=== PATIENT | female | born 1955 | race Two or more races ===

== ENCOUNTER 2022-04-03 03:49 | Inpatient (IN) | payer MEDICARE, OTHER ==
[~2022-04-03] VITALS: Ht 152.4 cm; Wt 81.6 kg
[2022-04-03] MEDS ORDERED: ASPIRIN 81 MG TAB.CHEW PO SCH (09:00)
--- NOTE | 2022-04-03 09:40 | NUR ---
DRIVERCOMMERCIAL JOURNEYMAN ELECTRICIAN NOTE Patient arrived via ambulance gurney as direct admit from [facility] presenting as alert and oriented x four and denying any pain at this time. Patient speaks only Brazilian and accompanied by very supportive bilingual speaking daughter. Apical heart rate to auscultation was even, regular at 72 bpm which was confirmed on telemetry also at 72 bpm NSR. Patient has normal, palpable pulses in all 4 warm extremities with good capillary refill. Lung sounds clear to auscultation throughout. Patient has positive bowel sound to all 4 abdominal quadrants, but c/o feeling constipated. Last bowel movement was yesterday. Patient states her normal elimination pattern is once every day. Vital signs are stable with temp= 98.6 F oral. [facility] Identification band securely attached to patient's wrist and confirmed correct spelling and date of . Safety precautions maintained with bed in lowest position and brakes locked with 3 bed siderails up. Will continue to monitor and orient patient to hospital, bed controls, safety procedures, handwashing.
[2022-04-03] MEDS ORDERED: MAGN400T8 PO (10:15)
[2022-04-03] MEDS ORDERED: OMEP20CA15 PO (10:15)
[2022-04-03] MEDS ORDERED: PRAZ5CAP2 PO (10:15)
[2022-04-03] MEDS ORDERED: ASPI-1169 PO (10:15)
[2022-04-03] MEDS ORDERED: LOSA1TAB39 PO (10:15)
[2022-04-03] MEDS ORDERED: AMLO-212 PO (10:15)
[2022-04-03] MEDS ORDERED: ATOR20TA PO (10:15)
[2022-04-03] MEDS ORDERED: GABA-532 PO (10:15)
[2022-04-03] MEDS ORDERED: TEMA30CA PO (10:15)
[2022-04-03] MEDS ORDERED: LORA-259 PO (10:15)
[2022-04-03] MEDS ORDERED: ONDANSETRON HCL/PF 4 MG/2 ML VIAL IV PRN (11:30)
[2022-04-03] MEDS ORDERED: MAGNESIUM HYDROXIDE 30 ML UDC PO PRN (11:30)
[2022-04-03] MEDS ORDERED: LORAZEPAM 0.5 MG TABLET PO PRN (11:30)
[2022-04-03] MEDS ORDERED: ACETAMINOPHEN 325 MG TABLET PO PRN (11:30)
[2022-04-03] MEDS ORDERED: DOCUSATE SODIUM 100 MG CAPSULE PO PRN (11:30)
[2022-04-03 11:57] LABS: BASOPHILS % (AUTO) 0.3 % (0.0-2.0); EOSINOPHILS % (AUTO) 0.8 % (0.0-6.0); HEMATOCRIT 36 % (33-45); HEMOGLOBIN 11.9 g/dL (11.5-14.8); LYMPHOCYTES # (AUTO) 1.7 K/uL (0.8-4.8); LYMPHOCYTES % (AUTO) 27.8 % (20.0-44.0); MEAN CORPUSCULAR HGB CONC 33 g/dl (31.0-36.0); MEAN CORPUSCULAR VOLUME 91 fL (82-100); MONOCYTES # (AUTO) 0.4 K/uL (0.1-1.30); MONOCYTES % (AUTO) 6.4 % (2.0-12.0); NEUTROPHILS % (AUTO) 64.7 % (43.0-81.0); PLATELET COUNT (AUTO) 132 K/uL (150-450); RED BLOOD CELL COUNT(AUTO) 3.96 MIL/uL (4.0-5.2); WHITE BLOOD COUNT (AUTO) 6.1 K/uL (4.3-11.0)
[2022-04-03 12:00] VITALS: BP 134/51
[2022-04-03 12:03] VITALS: BP 138/86
[2022-04-03 12:22] LABS: CALCIUM, SERUM 8.1 mg/dL (8.5-10.1); CREATININE 0.9 mg/dL (0.6-1.3); MAGNESIUM 2.2 mg/dL (1.8-2.4); PHOSPHORUS 3.1 mg/dL (2.5-4.9); POTASSIUM 3.6 mmol/L (3.5-5.1)
[2022-04-03] MEDS ORDERED: ENOXAPARIN SODIUM 80 MG/0.8 ML DISP.SYRIN SQ STA (13:30)
[2022-04-03] MEDS: ASPIRIN EC 325 MG TABLET.DR PO SCH (13:36)
[2022-04-03] MEDS: GABAPENTIN 300 MG CAPSULE PO SCH (13:36)
[2022-04-03] MEDS: LOSARTAN/HCTZ 50-12.5MG/ 1 EA TABLET PO SCH (13:38)
[2022-04-03] MEDS: IV NS 0.9% 1,000 ML IV SCH (13:39)
[2022-04-03] MEDS: MAGNESIUM OXIDE 400 MG TABLET PO SCH ×2 (13:40→17:23)
[2022-04-03] MEDS ORDERED: PRAZOSIN HCL 1 MG CAPSULE PO SCH (14:00)
[2022-04-03] MEDS: CEFTRIAXONE 1 G in IV D5W 50 ML IV SCH (15:15)
[2022-04-03 15:28] LABS: BILIRUBIN,URINE NEGATIVE (NEGATIVE); COLOR,URINE YELLOW (YELLOW); LEUKOCYTE ESTERASE ,URINE NEGATIVE (NEGATIVE); NITRITE, URINE NEGATIVE (NEGATIVE); PROTEIN,URINE NEGATIVE (NEGATIVE); UGLUCOSE NEGATIVE (NEGATIVE); UROBILINOGEN,URINE 0.2 EU/dL (0.2)
[2022-04-03 16:00] VITALS: BP 143/62
[2022-04-03] MEDS ORDERED: TEMAZEPAM 15 MG CAPSULE PO PRN (16:00)
[2022-04-03] MEDS: PRAZOSIN HCL 1 MG CAPSULE PO SCH ×2 (16:00→21:06)
[2022-04-03] MEDS ORDERED: LORAZEPAM 1 MG TABLET PO PRN (16:00)
[2022-04-03] MEDS ORDERED: hydrALAZINE HCL IV 20 MG VIAL IV PRN ×2 (17:00)
[2022-04-03] MEDS ORDERED: ENALAPRILAT DIHYD. (2.5MG/2ML) 1.25 MG/ML VIAL IV PRN (17:00)
[2022-04-03] MEDS: AMLODIPINE BESYLATE 5 MG TABLET PO SCH (17:23)
--- NOTE | 2022-04-03 18:58 | NUR ---
SUPERVISOR COMMISSARY PRODUCTION CLOSING NOTE Patient resting comfortably in bed with family visiting, alert and oriented x 4 and denies having pain at this time. Tele monitor showing HR in 60s to 80s. Breathing comfortably on room air with O2 saturation at 95%. Oriented and educated patient and family to safety protocals, visiting hours, privacy protocals, hand washing and patient's plan of care. Maintained safety with bed in lowest position, brakes locked, 2 bed siderails up, and call light within patient's reach. Will endorse to night RN for AKIN.
[2022-04-03] MEDS: METOPROLOL TARTRATE 25 MG TABLET PO SCH ×2 (18:59→21:00)
[2022-04-03 20:00] VITALS: BP 135/70
--- NOTE | 2022-04-03 20:21 | NUR ---
RN NOTE SPOKE TO PHARMACIST URVASHI CAMPUZANO TO GIVE LOVENOX 2100.
--- NOTE | 2022-04-03 20:22 | NUR ---
RN NOTE PT RECEIVED IN BED A/O X4 TURKISH SPEAKING BUT ABLE TO COMMUNICATE NEEDS IN [place] WELL. WITH FAMILY MEMBERS AT BEDSIDE PT DOES NOT REPORT ANY CHEST PAIN AT THIS TIME. NOTED WITH IC ACCESS ON RAC ML RUNNING NS @40ML/HR. BED IN LOWEST LOCKED POSITION. TABLE WITIN REACH. HOB ELEVATED FOR ASPIRATION PRECAUTIONS. CALL LIGHT WITHIN REACH.
--- NOTE | 2022-04-03 21:01 | NUR ---
RN NOTE DOSE TO CLOSE TO LAST DOSE IT WAS GIVEN 1900. PER PHARMACIST OKAY TO HOLD THIS DOSE AT THIS TIME.
[2022-04-03] MEDS: ATORVASTATIN 40 MG TABLET PO SCH (21:06)
[2022-04-03] MEDS: ENOXAPARIN SODIUM 80 MG/0.8 ML DISP.SYRIN SQ SCH (21:17)
[2022-04-03] MEDS: TEMAZEPAM 15 MG CAPSULE PO PRN (21:43)
[2022-04-03] MEDS ORDERED: ATORVASTATIN 40 MG TABLET PO SCH (22:00)
[2022-04-04] VITALS: BP 100/64
[2022-04-04 04:00] VITALS: BP 102/56
[2022-04-04 06:10] LABS: BASOPHILS % (AUTO) 0.3 % (0.0-2.0); HEMATOCRIT 37 % (33-45); LYMPHOCYTES % (AUTO) 36.9 % (20.0-44.0); MEAN CORPUSCULAR HGB CONC 33 g/dl (31.0-36.0); MEAN CORPUSCULAR VOLUME 92 fL (82-100); MONOCYTES # (AUTO) 0.4 K/uL (0.1-1.30); MONOCYTES % (AUTO) 7.8 % (2.0-12.0); NEUTROPHILS # (AUTO) 2.9 K/uL (1.8-8.9); PLATELET COUNT (AUTO) 137 K/uL (150-450); RED BLOOD CELL COUNT(AUTO) 3.96 MIL/uL (4.0-5.2); WHITE BLOOD COUNT (AUTO) 5.5 K/uL (4.3-11.0)
[2022-04-04 06:27] LABS: CALCIUM, SERUM 8.4 mg/dL (8.5-10.1); MAGNESIUM 2.6 mg/dL (1.8-2.4); PHOSPHORUS 3.4 mg/dL (2.5-4.9); POTASSIUM 3.5 mmol/L (3.5-5.1)
--- NOTE | 2022-04-04 06:35 | NUR ---
RN NOTE PT RECEIVED IN BED A/O X4 SYRIAN ASLEEP AT THIS TIME EASILY WOKEN UP. PT DOES NOT REPORT ANY CHEST PAIN AT THIS TIME. NOTED WITH IC ACCESS ON RAC ML RUNNING NS @40ML/HR. ON TELE MONITOR NSR 65- 93 DURING SHIFT.BED IN LOWEST LOCKED POSITION. TABLE WITHIN REACH. HOB ELEVATED FOR ASPIRATION PRECAUTIONS. CALL LIGHT WITHIN REACH.
[2022-04-04 06:44] LABS: THYROID STIMULATING HORMONE 1.009 uIU/mL (0.358-3.74)
[2022-04-04 07:00] VITALS: BP 110/60
--- NOTE | 2022-04-04 07:30 | NUR ---
AUTOMOBILE LEASING SUPERVISOR OPENING NOTES RECEIVED PATIENT ON BED AWAKE AND A/O X4. ON ROOM AIR TOLERATING WELL. NO SOB NOTED. NOT IN DISTRESS. WITH NO COMPLAINTS OF PAIN OR DISCOMFORT AT THIS TIME. WITH IV ACCESS AT THE RIGHT AC G18 WITH IVF NS AT 40ML/HR INFUSING WELL. ON TELE MONITOR CURRENTLY READING SINUS RHYTHM AT 80BPM. SAFETY MEASURES IN PLACED. CALL LIGHT WITHIN REACH. BED ON LOWEST LOCKED POSITION, SIDE RAILS UP X2. WILL CONTINUE TO MONITOR.
[2022-04-04] MEDS: PANTOPRAZOLE 40 MG TABLET.DR PO SCH (08:44)
[2022-04-04] MEDS: MAGNESIUM OXIDE 400 MG TABLET PO SCH ×3 (08:44→16:13)
[2022-04-04] MEDS: GABAPENTIN 300 MG CAPSULE PO SCH (08:44)
[2022-04-04] MEDS: AMLODIPINE BESYLATE 5 MG TABLET PO SCH ×2 (08:44→16:13)
[2022-04-04] MEDS: LOSARTAN POTASSIUM 50 MG TABLET PO SCH (08:44)
[2022-04-04] MEDS: ASPIRIN EC 325 MG TABLET.DR PO SCH (08:44)
[2022-04-04] MEDS: HYDROCHLOROTHIAZIDE 25 MG TABLET PO SCH (08:45)
[2022-04-04] MEDS: PRAZOSIN HCL 1 MG CAPSULE PO SCH ×2 (08:45→21:25)
[2022-04-04] MEDS: ENOXAPARIN SODIUM 80 MG/0.8 ML DISP.SYRIN SQ SCH ×2 (08:48→21:23)
[2022-04-04] MEDS: METOPROLOL TARTRATE 25 MG TABLET PO SCH ×2 (08:49→21:24)
[2022-04-04] MEDS: LOSARTAN/HCTZ 50-12.5MG/ 1 EA TABLET PO SCH (08:49)
[2022-04-04] MEDS: GABAPENTIN 100 MG CAPSULE PO SCH (08:49)
[2022-04-04] MEDS: ATORVASTATIN 40 MG TABLET PO SCH ×2 (08:50→21:21)
[2022-04-04 08:52] LABS: CHOLESTEROL 120 mg/dL (<200); HDL CHOLESTEROL 61 mg/dL (40-60); LDL 53 mg/dL (0-99); TRIGLYCERIDES 83 mg/dL (30-150)
[2022-04-04 12:00] VITALS: BP 101/64
[2022-04-04] MEDS: IV NS 0.9% 1,000 ML IV SCH (13:55)
[2022-04-04] MEDS ORDERED: POTASSIUM CHLORIDE 20 MEQ TAB.PRT.SR PO SCH (14:00)
[2022-04-04] MEDS: CEFTRIAXONE 1 G in IV D5W 50 ML IV SCH (14:18)
[2022-04-04] MEDS: METOPROLOL TARTRATE INJ 5 MG/5 ML AMPUL IVP PRN ×4 (14:50→15:05)
[2022-04-04] MEDS ORDERED: IV NS 0.9% 250 ML IV ONE (14:54)
[2022-04-04] MEDS ORDERED: CT SWABBABLE VALVE TRANS SET 1 EA INFUS.SET MC ONE (14:54)
[2022-04-04] MEDS ORDERED: NITROGLYCERIN 0.4 MG/TAB BOTTLE ONE (14:54)
[2022-04-04] MEDS ORDERED: METOPROLOL TARTRATE INJ 5 MG/5 ML AMPUL ONE (14:54)
[2022-04-04] MEDS ORDERED: IOHEXOL-350 100 ML VIAL IV ONE ×2 (14:55→14:59)
[2022-04-04] MEDS ORDERED: NITROGLYCERIN 0.4 MG/TAB BOTTLE SL ONE (15:00)
--- NOTE | 2022-04-04 18:45 | NUR ---
TRANSPORTATION ENGINEERING TECHNICIAN CLOSING NOTES PATIENT ON BED AWAKE AND A/O X4. ON ROOM AIR TOLERATING WELL. NO SOB NOTED. NOT IN DISTRESS. WITH NO COMPLAINTS OF PAIN OR DISCOMFORT AT THIS TIME. WITH IV ACCESS AT RIGHT FOREARM G22 SALINE LOCKED, PATENT AND INTACT AND AT THE LEFT FOREARM G20 WITH IVF NS AT 40ML/HR INFUSING WELL. ON TELE MONITOR CURRENTLY READING SINUS RHYTHM AT 85BPM. DUE MEDS GIVEN. SAFETY MEASURES IN PLACED. CALL LIGHT WITHIN REACH. BED ON LOWEST LOCKED POSITION, SIDE RAILS UP X2. WILL ENDORSE TO NEXT SHIFT FOR AKIN.
--- NOTE | 2022-04-04 19:15 | NUR ---
SCENE PAINTER OPENING NOTES RECEIVED PATIENT ON BED AWAKE. A/O X4, ABLE TO MAKE NEEDS KNOWN, FAMILY AT BEDSIDE. ON RA WITH NO SOB NOTED. NO DISTRESS NOTED AND NO COMPLAINTS OF PAIN OR DISCOMFORT AT THIS TIME. IV ACCESS RFA #22G SL AND LFA #20G RUNNING NS @ 40MLHR, PATENT AND INTACT. ON TELE MONITOR CURRENTLY READING SR AT 65 BPM. SAFETY MEASURES IN PLACE: BED LOCKED AND IN LOWEST POSITION, SIDE RAILS UP X3, CALL LIGHT AND TRAY TABLE WITHIN REACH. WILL CONTINUE TO MONITOR AND ASSIST.
[2022-04-04 20:16] VITALS: BP 120/63
[2022-04-04] MEDS: TEMAZEPAM 15 MG CAPSULE PO PRN (21:25)
[2022-04-05 00:18] VITALS: BP 106/51
[2022-04-05 04:02] VITALS: BP 111/51
--- NOTE | 2022-04-05 07:00 | NUR ---
SAMPLE COORDINATOR CLOSING NOTES PATIENT RESTING IN BED AT THIS TIME. A/O X4, ABLE TO MAKE NEEDS KNOWN. STABLE ON RA WITH NO SOB NOTED. NO DISTRESS NOTED AND NO COMPLAINTS OF PAIN OR DISCOMFORT AT THIS TIME. IV ACCESS RFA #22G SL AND LFA #20G RUNNING NS @ 40MLHR, PATENT AND INTACT. ON TELE MONITOR CURRENTLY READING SR AT 70 BPM. ALL CARE PROVIDED AND MEDS TOLERATED WELL. SAFETY MEASURES MAINTAINED: BED LOCKED AND IN LOWEST POSITION, SIDE RAILS UP X3, CALL LIGHT AND TRAY TABLE WITHIN REACH. WILL ENDORSE AKIN TO DAY SHIFT NURSE.
--- NOTE | 2022-04-05 07:30 | NUR ---
SAND CLEANING MACHINE OPERATOR OPENING NOTES RECEIVED PATIENT ON BED AWAKE AND A/O X4. ON ROOM AIR TOLERATING WELL. NO SOB NOTED. NOT IN DISTRESS. WITH NO COMPLAINTS OF PAIN OR DISCOMFORT AT THIS TIME. WITH IV ACCESS AT RIGHT FOREARM G22 SALINE LOCKED, PATENT AND INTACT AND AT THE LEFT FOREARM G20 WITH IVF NS AT 40ML/HR INFUSING WELL. ON TELE MONITOR CURRENTLY READING SINUS RHYTHM AT 78BPM. SAFETY MEASURES IN PLACED. CALL LIGHT WITHIN REACH. BED ON LOWEST LOCKED POSITION, SIDE RAILS UP X2. WILL CONTINUE TO MONITOR.
[2022-04-05 08:00] VITALS: BP 140/71
[2022-04-05] MEDS: ATORVASTATIN 40 MG TABLET PO SCH (08:01)
[2022-04-05] MEDS: AMLODIPINE BESYLATE 5 MG TABLET PO SCH ×2 (08:02→17:17)
[2022-04-05] MEDS: GABAPENTIN 300 MG CAPSULE PO SCH (08:02)
[2022-04-05] MEDS: LOSARTAN POTASSIUM 50 MG TABLET PO SCH (08:02)
[2022-04-05] MEDS: METOPROLOL TARTRATE 25 MG TABLET PO SCH ×2 (08:02→21:22)
[2022-04-05] MEDS: HYDROCHLOROTHIAZIDE 25 MG TABLET PO SCH (08:02)
[2022-04-05] MEDS: PANTOPRAZOLE 40 MG TABLET.DR PO SCH (08:03)
[2022-04-05] MEDS: MAGNESIUM OXIDE 400 MG TABLET PO SCH ×3 (08:42→16:11)
[2022-04-05] MEDS: GABAPENTIN 100 MG CAPSULE PO SCH (08:42)
[2022-04-05] MEDS: VALSARTAN 80 MG TABLET PO SCH (08:42)
[2022-04-05] MEDS: PRAZOSIN HCL 1 MG CAPSULE PO SCH ×2 (08:42→21:23)
[2022-04-05] MEDS: ASPIRIN EC 325 MG TABLET.DR PO SCH (08:43)
[2022-04-05 12:00] VITALS: BP 106/62
[2022-04-05] MEDS: CEFTRIAXONE 1 G in IV D5W 50 ML IV SCH (14:31)
[2022-04-05 16:00] VITALS: BP 120/74
[2022-04-05 16:54] LABS: BASOPHILS # (AUTO) 0.1 K/uL (0.0-0.2); BASOPHILS % (AUTO) 0.9 % (0.0-2.0); HEMATOCRIT 38 % (33-45); HEMOGLOBIN 12.4 g/dL (11.5-14.8); LYMPHOCYTES # (AUTO) 1.7 K/uL (0.8-4.8); LYMPHOCYTES % (AUTO) 25.9 % (20.0-44.0); MEAN CORPUSCULAR HGB CONC 32 g/dl (31.0-36.0); MEAN CORPUSCULAR VOLUME 92 fL (82-100); MONOCYTES # (AUTO) 0.5 K/uL (0.1-1.30); NEUTROPHILS # (AUTO) 4.3 K/uL (1.8-8.9); NEUTROPHILS % (AUTO) 64.2 % (43.0-81.0); PLATELET COUNT (AUTO) 162 K/uL (150-450); RED BLOOD CELL COUNT(AUTO) 4.17 MIL/uL (4.0-5.2); WHITE BLOOD COUNT (AUTO) 6.7 K/uL (4.3-11.0)
[2022-04-05 17:12] LABS: CALCIUM, SERUM 8.5 mg/dL (8.5-10.1); MAGNESIUM 2.2 mg/dL (1.8-2.4); PHOSPHORUS 3.4 mg/dL (2.5-4.9); POTASSIUM 3.8 mmol/L (3.5-5.1)
--- NOTE | 2022-04-05 19:20 | NUR ---
BUILDING CLEANING SUPERVISOR CLOSING NOTES PATIENT ON BED AWAKE AND A/O X4. ON ROOM AIR TOLERATING WELL. NO SOB NOTED. NOT IN DISTRESS. WITH NO COMPLAINTS OF PAIN OR DISCOMFORT AT THIS TIME. WITH IV ACCESS AT RIGHT FOREARM G22 SALINE LOCKED, PATENT AND INTACT AND AT THE LEFT FOREARM G20 SALINE LOCKED, PATENT AND INTACT. ON TELE MONITOR CURRENTLY READING SINUS RHYTHM AT 82BPM. DUE MEDS GIVEN. SAFETY MEASURES IN PLACED. CALL LIGHT WITHIN REACH. BED ON LOWEST LOCKED POSITION, SIDE RAILS UP X2. WILL ENDORSE TO NEXT SHIFT FOR AKIN.
--- NOTE | 2022-04-05 19:51 | NUR ---
RN OPENING NOTES RECEIVED PT IN BED, AWAKE SITTING UPRIGHT IN CHAIR WITH SON AT BEDSIDE. AOx4, ABLE TO MAKE NEEDS KNOWN. ON RA AND TOLERATING WELL. NO SOB NOTED. NO S/SX OF RESPIRATORY DISTRESS NOTED. IV ACCESS IN LFA #20G AND RFA #22G. IV IS INTACT, PATENT, AND FLUSHING WELL. SAFETY PRECAUTIONS IN PLACE: BED IN LOWEST, LOCKED POSITION, SIDERAILS UPx2, AND BRAKES ON. TABLE AND CALL LIGHT WITHIN REACH. ALL NEEDS MET AT THIS TIME.
[2022-04-05 20:00] VITALS: BP 130/66
[2022-04-05] MEDS: ENOXAPARIN SODIUM 80 MG/0.8 ML DISP.SYRIN SQ SCH (21:24)
[2022-04-05] MEDS: TEMAZEPAM 15 MG CAPSULE PO PRN (22:07)
--- NOTE | 2022-04-05 22:07 | NUR ---
RN NOTES ADMINISTERED TEMAZEPAM FOR SLEEP PER PT REQUEST.
[2022-04-06] VITALS: BP 94/63
--- NOTE | 2022-04-06 06:36 | NUR ---
RN CLOSING NOTES PT IN BED, AWAKE, SITTING UPRIGHT, USING PHONE. AOx4, ABLE TO MAKE NEEDS KNOWN. ON RA AND TOLERATING WELL. NO SOB NOTED. NO S/SX OF RESPIRATORY DISTRESS NOTED. IV ACCESS IN LFA #20G AND RFA #22G. IV IS INTACT, PATENT, AND FLUSHING WELL. ALL ORDERS CARRIED OUT. ALL NEEDS MET. PT KEPT CLEAN AND DRY. SAFETY PRECAUTIONS IN PLACE: BED IN LOWEST, LOCKED POSITION, SIDERAILS UPx2, AND BRAKES ON. TABLE AND CALL LIGHT WITHIN REACH. WILL ENDORSE TO ONCOMING SHIFT FOR AKIN.
[2022-04-06 06:43] LABS: BASOPHILS % (AUTO) 0.3 % (0.0-2.0); EOSINOPHILS % (AUTO) 2.8 % (0.0-6.0); HEMATOCRIT 34 % (33-45); HEMOGLOBIN 11.5 g/dL (11.5-14.8); LYMPHOCYTES # (AUTO) 1.8 K/uL (0.8-4.8); LYMPHOCYTES % (AUTO) 33.3 % (20.0-44.0); MEAN CORPUSCULAR HGB CONC 33 g/dl (31.0-36.0); MEAN CORPUSCULAR VOLUME 91 fL (82-100); MONOCYTES # (AUTO) 0.4 K/uL (0.1-1.30); MONOCYTES % (AUTO) 8.1 % (2.0-12.0); NEUTROPHILS % (AUTO) 55.5 % (43.0-81.0); PLATELET COUNT (AUTO) 137 K/uL (150-450); RED BLOOD CELL COUNT(AUTO) 3.77 MIL/uL (4.0-5.2); WHITE BLOOD COUNT (AUTO) 5.4 K/uL (4.3-11.0)
[2022-04-06 07:04] LABS: CALCIUM, SERUM 8.4 mg/dL (8.5-10.1); CREATININE 0.9 mg/dL (0.6-1.3); MAGNESIUM 2.2 mg/dL (1.8-2.4); PHOSPHORUS 4.2 mg/dL (2.5-4.9); POTASSIUM 3.5 mmol/L (3.5-5.1)
--- NOTE | 2022-04-06 07:30 | NUR ---
RN Opening Note Patient AOx4 able to express her concerns. Patient states no issues. No signs of distress or discomfort. Will continue to monitor throughout shift. All safety precautions taken, call light and table within reach, bed at lowest position.
[2022-04-06 08:00] VITALS: BP 100/60
[2022-04-06] MEDS: MAGNESIUM OXIDE 400 MG TABLET PO SCH ×2 (08:24→08:28)
[2022-04-06] MEDS: GABAPENTIN 300 MG CAPSULE PO SCH (08:24)
[2022-04-06] MEDS: ENOXAPARIN SODIUM 80 MG/0.8 ML DISP.SYRIN SQ SCH (08:24)
[2022-04-06] MEDS: ATORVASTATIN 40 MG TABLET PO SCH (08:24)
[2022-04-06] MEDS: PANTOPRAZOLE 40 MG TABLET.DR PO SCH (08:25)
[2022-04-06] MEDS: ASPIRIN EC 325 MG TABLET.DR PO SCH (08:25)
[2022-04-06] MEDS: VALSARTAN 80 MG TABLET PO SCH (08:26)
[2022-04-06] MEDS: LOSARTAN POTASSIUM 50 MG TABLET PO SCH (08:26)
[2022-04-06] MEDS: METOPROLOL TARTRATE 25 MG TABLET PO SCH (08:27)
[2022-04-06] MEDS: AMLODIPINE BESYLATE 5 MG TABLET PO SCH (08:28)
[2022-04-06] MEDS: GABAPENTIN 100 MG CAPSULE PO SCH (08:28)
[2022-04-06] MEDS: PRAZOSIN HCL 1 MG CAPSULE PO SCH (08:28)
[2022-04-06 11:56] VITALS: BP 98/60
[2022-04-06] MEDS: CEFTRIAXONE 1 G in IV D5W 50 ML IV SCH (15:13)
[2022-04-06 16:00] VITALS: BP 105/72
[2022-04-06] MEDS ORDERED: ATOR40TA PO (17:22)
[2022-04-06] MEDS ORDERED: TEMA15CA5 PO (17:22)
[2022-04-06] MEDS ORDERED: METO25TA20 PO (17:22)
[2022-04-06] MEDS ORDERED: LOSA50TA39 PO (17:22)
[2022-04-06] MEDS ORDERED: PRAZ1CAP17 PO (17:22)
[2022-04-06] MEDS ORDERED: ASPI-1100 PO (17:22)
[2022-04-06] MEDS ORDERED: VALS80TA31 PO (17:22)
[2022-04-06] MEDS ORDERED: ACET325T53 PO (17:22)
--- NOTE | 2022-04-06 18:04 | NUR ---
decorating kiln operator Note Patient AOx4 able to express her concerns. Patient son and daughter at bedside. Educated pt and fam. on importance of following up with PCP and cardiology. Provided records and phone numbers for providers. Patient made aware of medications sent to her pharmacy. All safety precautions taken, patient discharge out of unit safely.
== END 2022-04-06 18:05 | disposition home or self-care (01) | DRG 280 ==
LOC: TELE 08:51
PROVIDERS: ADMIT Internal Medicine; ATTEND Internal Medicine
DX: I21.4 Non-ST elevation (NSTEMI) myocardial infarction (principal); J18.9 Pneumonia, unspecified organism; I16.0 Hypertensive urgency; I25.10 Atherosclerotic heart disease of native coronary artery without angina pectoris; I10 Essential (primary) hypertension; F41.9 Anxiety disorder, unspecified; K21.9 Gastro-esophageal reflux disease without esophagitis; E78.00 Pure hypercholesterolemia, unspecified; G47.9 Sleep disorder, unspecified; Z79.899 Other long term (current) drug therapy; Z98.51 Tubal ligation status; D50.9 Iron deficiency anemia, unspecified; Z82.49 Family history of ischemic heart disease and other diseases of the circulatory system; E66.9 Obesity, unspecified; G47.33 Obstructive sleep apnea (adult) (pediatric); Z68.35 Body mass index [BMI] 35.0-35.9, adult; Z79.82 Long term (current) use of aspirin
CPT/HCPCS: 36415; 75574; 80048-TC; 80061-TC; 83540-TC; 83605-TC; 83735-TC; 84100-TC; 84443-TC; 84484-TC; 85025-TC; 87040-TC; 87086-TC; 93307-TC; G0378; J0696; J1650; J3490; J7030; J7050; J7060; Q9967

== ENCOUNTER 2023-12-16 15:43 | Inpatient (IN) | payer MEDICARE, OTHER ==
[~2023-12-16] VITALS: Ht 152.4 cm; Wt 76.2 kg
[~2023-12-16 15:43] MED LIST: ACET325T53 PO; AMLO-212 PO; ASPI-1100 PO; ASPI-1169 PO; ATOR20TA PO; ATOR40TA PO; GABA-532 PO; LORA-259 PO; LOSA1TAB39 PO; LOSA50TA39 PO; MAGN400T8 PO; METO25TA20 PO; OMEP20CA15 PO; PRAZ1CAP17 PO; PRAZ5CAP2 PO; TEMA15CA5 PO; TEMA30CA PO; VALS80TA31 PO
[2023-12-16 16:25] LABS: BASOPHILS % (AUTO) 0.2 % (0.0-2.0); HEMATOCRIT 41 % (33-45); HEMOGLOBIN 13.9 g/dL (11.5-14.8); LYMPHOCYTES # (AUTO) 0.6 K/uL (0.8-4.8); LYMPHOCYTES % (AUTO) 8.2 % (20.0-44.0); MEAN CORPUSCULAR HEMOGLOBIN 30 PG (26.0-33.0); MEAN CORPUSCULAR HGB CONC 34 g/dl (31.0-36.0); MEAN CORPUSCULAR VOLUME 88 fL (82-100); MONOCYTES # (AUTO) 0.1 K/uL (0.1-1.30); MONOCYTES % (AUTO) 0.7 % (2.0-12.0); NEUTROPHILS # (AUTO) 6.6 K/uL (1.8-8.9); NEUTROPHILS % (AUTO) 90.9 % (43.0-81.0); PLATELET COUNT (AUTO) 167 K/uL (150-450); RED BLOOD CELL COUNT(AUTO) 4.71 MIL/uL (4.0-5.2); RED CELL DISTRIBUTION WIDTH 13.6 % (11.5-15.0); WHITE BLOOD COUNT (AUTO) 7.3 K/uL (4.3-11.0)
[2023-12-16 16:37] LABS: CALCIUM, SERUM 8.9 mg/dL (8.5-10.1); CARBON DIOXIDE 26 mmol/L (21-32); CHLORIDE 91 mmol/L (98-107); GLUCOSE 182 mg/dL (74-106); POTASSIUM 3.7 mmol/L (3.5-5.1); SODIUM SERUM 128 mmol/L (136-145); UREA NITROGEN, BLOOD 13 mg/dL (7-18)
[2023-12-16 16:50] LABS: ALANINE AMINOTRANSFERASE 22 U/L (12-78); ALBUMIN 3.9 g/dL (3.4-5.0); ALKALINE PHOSPHATASE 89 U/L (46-116); ASPARTATE AMINOTRANSFERASE 22 U/L (15-37); BILIRUBIN,DIRECT 0.2 mg/dL (0.0-0.2); BILIRUBIN,TOTAL 0.7 mg/dL (0.2-1.0); NT-PRO BNP 129 pg/mL (0-125); TOTAL PROTEIN, SERUM 7.5 g/dL (6.4-8.2)
[2023-12-16 16:57] LABS: THYROID STIMULATING HORMONE 0.39 uIU/mL (0.358-3.74)
[2023-12-16] MEDS: IV NS 0.9% 1,000 ML BAG IV ONE (17:20)
[2023-12-16] MEDS ORDERED: ALPR0.5T8 PO (17:57)
[2023-12-16] MEDS ORDERED: METO-358 PO (17:57)
[2023-12-16] MEDS ORDERED: CLOP75TA15 PO (17:57)
[2023-12-16] MEDS ORDERED: VALS160T2 PO (17:57)
[2023-12-16] MEDS ORDERED: ATOR40TA PO (17:57)
[2023-12-16] MEDS ORDERED: HYDR50TA4 PO (17:57)
[2023-12-16] MEDS ORDERED: CYAN-24 PO (17:57)
[2023-12-16] MEDS ORDERED: KETO10TA2 PO (17:57)
[2023-12-16 18:00] VITALS: BP 166/69; TEMP 98.4; O2SAT 98
[2023-12-16] MEDS: IV NS 0.9% 500 ML BAG IV ONE (18:27)
[2023-12-16] MEDS ORDERED: INSULIN REGULAR, HUMAN 100 UNIT/ML 3 ML VIAL SQ PRN (18:30)
[2023-12-16] MEDS ORDERED: ONDANSETRON HCL/PF 4 MG/2 ML VIAL IVP PRN (18:30)
[2023-12-16] MEDS ORDERED: KETOROLAC TROMETHAMINE 10 MG TABLET PO PRN (18:30)
[2023-12-16] MEDS ORDERED: MORPHINE SULFATE INJ 2 MG/ML DISP.SYRIN IV PRN (18:30)
[2023-12-16] MEDS ORDERED: DEXTROSE 50%-WATER 50 ML DISP.SYRIN IV PRN (18:30)
[2023-12-16 18:32] VITALS: BP 166/69; TEMP 98.4; O2SAT 98
[2023-12-16 19:36] LABS: URINE SODIUM, RANDOM 42 mmol/l (40-220)
[2023-12-16] MEDS: ALPRAZOLAM 0.5 MG TABLET PO PRN (19:48)
[2023-12-16] MEDS: ACETAMINOPHEN 325 MG TABLET PO PRN (19:48)
[2023-12-16] MEDS: IV NS 0.9% 1,000 ML IV SCH (19:48)
[2023-12-16 20:00] VITALS: BP 160/64; TEMP 97.5; O2SAT 96
[2023-12-16] MEDS: ATORVASTATIN 40 MG TABLET PO SCH (21:48)
[2023-12-16] MEDS: HEPARIN SODIUM, PORCINE 5000 UNITS/1 ML VIAL SQ SCH (21:51)
[2023-12-16] MEDS: BLOOD SUGAR DIAGNOSTIC 1 EACH STRIP IN SCH (21:58)
[2023-12-17] VITALS (7 sets, daily range): BP systolic 118–170; BP diastolic 61–73; TEMP 97.8–98.1; O2SAT 94–100
[2023-12-17] MEDS: hydrALAZINE HCL IV 20 MG VIAL IV PRN (06:05)
[2023-12-17 08:35] LABS: ALBUMIN 3.9 g/dL (3.4-5.0); BILIRUBIN,TOTAL 0.6 mg/dL (0.2-1.0); CALCIUM, SERUM 9.2 mg/dL (8.5-10.1); CREATININE 0.7 mg/dL (0.6-1.3); MAGNESIUM 2.3 mg/dL (1.8-2.4); PHOSPHORUS 2.9 mg/dL (2.5-4.9); POTASSIUM 3.2 mmol/L (3.5-5.1); TOTAL PROTEIN, SERUM 7.5 g/dL (6.4-8.2)
[2023-12-17] MEDS: PRAZOSIN HCL 1 MG CAPSULE PO SCH (08:48)
[2023-12-17] MEDS: METOPROLOL SUCCINATE 50 MG TAB.SR.24H PO SCH (08:48)
[2023-12-17] MEDS: VALSARTAN 80 MG TABLET PO SCH (08:49)
[2023-12-17] MEDS: DOCUSATE SODIUM LIQ 100 MG/10 ML UDC PO SCH (08:49)
[2023-12-17] MEDS: CLOPIDOGREL BISULFATE 75 MG TABLET PO SCH (08:52)
[2023-12-17] MEDS: POLYETHYLENE GLYCOL 3350 17 GM POWD.PACK PO SCH (08:52)
[2023-12-17 09:59] LABS: BASOPHILS # (AUTO) 0.1 K/uL (0.0-0.2); BASOPHILS % (AUTO) 0.7 % (0.0-2.0); EOSINOPHILS % (AUTO) 0.1 % (0.0-6.0); HEMATOCRIT 42 % (33-45); HEMOGLOBIN 13.9 g/dL (11.5-14.8); LYMPHOCYTES # (AUTO) 1.7 K/uL (0.8-4.8); LYMPHOCYTES % (AUTO) 19.2 % (20.0-44.0); MEAN CORPUSCULAR HEMOGLOBIN 29 PG (26.0-33.0); MEAN CORPUSCULAR HGB CONC 33 g/dl (31.0-36.0); MEAN CORPUSCULAR VOLUME 86 fL (82-100); MONOCYTES % (AUTO) 10.6 % (2.0-12.0); NEUTROPHILS # (AUTO) 6.3 K/uL (1.8-8.9); NEUTROPHILS % (AUTO) 69.4 % (43.0-81.0); PLATELET COUNT (AUTO) 136 K/uL (150-450); RED BLOOD CELL COUNT(AUTO) 4.84 MIL/uL (4.0-5.2); RED CELL DISTRIBUTION WIDTH 13.9 % (11.5-15.0)
[2023-12-17] MEDS: POTASSIUM CHLORIDE 20 MEQ TAB.PRT.SR PO SCH (10:52)
[2023-12-17] MEDS: POTASSIUM CHLORIDE 20 MEQ POWDER PACKET PO SCH (11:42)
[2023-12-17] MEDS: DOCUSATE SODIUM 100 MG CAPSULE PO SCH (16:45)
[2023-12-17 17:41] LABS: OSMOLALITY,SERUM 271 mOS/kg (278-305); OSMOLALITY,URINE 212 mOS/kg (340-1090)
[2023-12-17] MEDS: DOXAZOSIN MESYLATE (1 MG) 1 MG TABLET PO SCH (22:14)
[2023-12-18] VITALS (7 sets, daily range): BP systolic 111–174; BP diastolic 57–89; TEMP 97.3–98.4; O2SAT 96–99
[2023-12-18 06:59] LABS: CALCIUM, SERUM 8.8 mg/dL (8.5-10.1); CREATININE 0.9 mg/dL (0.6-1.3); POTASSIUM 3.7 mmol/L (3.5-5.1)
[2023-12-18] MEDS: VALSARTAN 80 MG TABLET PO SCH (08:56)
[2023-12-18] MEDS ORDERED: VALS80TA31 PO (08:58)
[2023-12-18] MEDS: IV NS 0.9% 500 ML IV ONE (13:38)
[2023-12-18] MEDS: busPIRone 5 MG TABLET PO SCH (16:37)
[2023-12-18] MEDS ORDERED: LORAZEPAM 0.5 MG TABLET PO PRN (17:00)
[2023-12-18] MEDS: MIRTAZAPINE 15 MG TABLET PO SCH (21:10)
[2023-12-19 04:00] VITALS: BP 143/70; TEMP 98.1; O2SAT 99
[2023-12-19 07:10] LABS: CALCIUM, SERUM 8.1 mg/dL (8.5-10.1); CREATININE 0.9 mg/dL (0.6-1.3); POTASSIUM 3.9 mmol/L (3.5-5.1)
[2023-12-19] MEDS: CLONIDINE HCL 0.1 MG TABLET PO SCH (08:53)
[2023-12-19 08:55] VITALS: BP 178/72
[2023-12-19] MEDS ORDERED: BUSP5TAB3 PO (12:04)
[2023-12-19] MEDS ORDERED: MIRT-121 PO (12:04)
[2023-12-19] MEDS ORDERED: DOXAZOSIN MESYLATE (1 MG) 1 MG TABLET PO SCH (22:00)
== END 2023-12-19 13:40 | disposition home or self-care (01) | DRG 555 ==
LOC: ER 15:50 → TELE1 18:16 → MEDSG1 12-18 19:53
PROVIDERS: ADMIT Internal Medicine; ATTEND Internal Medicine
DX: M79.18 Myalgia, other site (principal); I21.A1 Myocardial infarction type 2; E87.1 Hypo-osmolality and hyponatremia; F41.1 Generalized anxiety disorder; F41.0 Panic disorder [episodic paroxysmal anxiety]; E78.5 Hyperlipidemia, unspecified; I10 Essential (primary) hypertension; R53.1 Weakness; R73.9 Hyperglycemia, unspecified; T46.6X5A Adverse effect of antihyperlipidemic and antiarteriosclerotic drugs, initial encounter; Y92.009 Unspecified place in unspecified non-institutional (private) residence as the place of occurrence of the external cause; T50.2X5A Adverse effect of carbonic-anhydrase inhibitors, benzothiadiazides and other diuretics, initial encounter
CPT/HCPCS: 36415; 70450-TC; 71045-TC; 80048-TC; 80053-TC; 80076-TC; 82550-TC; 82553; 82962-TC; 83735-TC; 83880; 83935-TC; 84100-TC; 84300-TC; 84443-TC; 84484-TC; 85025-TC; 93307-TC; 97110-TC; 97116-TC; 97530-TC; 97535-TC; A4223; G0378; J0360; J1644; J1815; J7030; J7040

== ENCOUNTER 2023-12-21 14:55 | Inpatient (IN) | payer MEDICARE, OTHER ==
[~2023-12-21] VITALS: Ht 152.4 cm; Wt 79.8 kg
[~2023-12-21 14:55] MED LIST changes: -ACET325T53 PO; -AMLO-212 PO; -ASPI-1100 PO; -ASPI-1169 PO; -ATOR20TA PO; -ATOR40TA PO; +BUSP5TAB3 PO; +CLOP75TA15 PO; +CYAN-24 PO; -GABA-532 PO; +HYDR50TA4 PO; -LORA-259 PO; -LOSA1TAB39 PO; -LOSA50TA39 PO; -MAGN400T8 PO; +METO-358 PO; -METO25TA20 PO; +MIRT-121 PO; -OMEP20CA15 PO; -PRAZ1CAP17 PO; -TEMA15CA5 PO; -TEMA30CA PO
[2023-12-21 15:46] LABS: BASOPHILS % (AUTO) 0.4 % (0.0-2.0); EOSINOPHILS # (AUTO) 0.1 K/uL (0.0-0.7); EOSINOPHILS % (AUTO) 0.7 % (0.0-6.0); HEMATOCRIT 40 % (33-45); HEMOGLOBIN 13.4 g/dL (11.5-14.8); LYMPHOCYTES # (AUTO) 1.5 K/uL (0.8-4.8); LYMPHOCYTES % (AUTO) 20.3 % (20.0-44.0); MEAN CORPUSCULAR HEMOGLOBIN 30 PG (26.0-33.0); MEAN CORPUSCULAR HGB CONC 34 g/dl (31.0-36.0); MEAN CORPUSCULAR VOLUME 88 fL (82-100); MONOCYTES # (AUTO) 0.6 K/uL (0.1-1.30); MONOCYTES % (AUTO) 7.9 % (2.0-12.0); NEUTROPHILS # (AUTO) 5.3 K/uL (1.8-8.9); NEUTROPHILS % (AUTO) 70.7 % (43.0-81.0); PLATELET COUNT (AUTO) 152 K/uL (150-450); RED BLOOD CELL COUNT(AUTO) 4.53 MIL/uL (4.0-5.2); RED CELL DISTRIBUTION WIDTH 14.1 % (11.5-15.0); WHITE BLOOD COUNT (AUTO) 7.5 K/uL (4.3-11.0)
[2023-12-21 15:53] LABS: CALCIUM, SERUM 8.7 mg/dL (8.5-10.1); CARBON DIOXIDE 28 mmol/L (21-32); CHLORIDE 96 mmol/L (98-107); CREATININE 0.9 mg/dL (0.6-1.3); GLUCOSE 100 mg/dL (74-106); POTASSIUM 4.5 mmol/L (3.5-5.1); SODIUM SERUM 130 mmol/L (136-145); UREA NITROGEN, BLOOD 13 mg/dL (7-18)
[2023-12-21 15:58] LABS: ALANINE AMINOTRANSFERASE 25 U/L (12-78); ALKALINE PHOSPHATASE 75 U/L (46-116); ASPARTATE AMINOTRANSFERASE 30 U/L (15-37); BILIRUBIN,DIRECT 0.1 mg/dL (0.0-0.2); BILIRUBIN,TOTAL 0.6 mg/dL (0.2-1.0); TOTAL PROTEIN, SERUM 6.9 g/dL (6.4-8.2)
[2023-12-21 16:04] LABS: ALBUMIN 3.9 g/dL (3.4-5.0)
[2023-12-21] MEDS ORDERED: diphenhydrAMINE HCL 50 MG/ML VIAL ONE (16:45)
[2023-12-21] MEDS ORDERED: ACETAMINOPHEN 325 MG TABLET ONE (16:45)
[2023-12-21] MEDS ORDERED: METOCLOPRAMIDE HCL 10 MG/2 ML VIAL ONE (16:45)
[2023-12-21] MEDS: diphenhydrAMINE HCL 50 MG/ML VIAL IV ONE (16:46)
[2023-12-21] MEDS: METOCLOPRAMIDE HCL 10 MG/2 ML VIAL IV ONE (16:47)
[2023-12-21] MEDS: ACETAMINOPHEN 325 MG TABLET PO ONE (16:47)
[2023-12-21] MEDS ORDERED: ASPIRIN 81 MG TAB.CHEW ONE (18:35)
[2023-12-21] MEDS: ASPIRIN 81 MG TAB.CHEW PO ONE (18:36)
[2023-12-21] MEDS ORDERED: Z GUARD REMEDY 4 OZ OINT TP PRN (20:30)
[2023-12-21] MEDS ORDERED: ONDANSETRON HCL/PF 4 MG/2 ML VIAL IVP PRN (20:30)
[2023-12-21] MEDS ORDERED: MAGNESIUM HYDROXIDE 30 ML UDC PO PRN (20:30)
[2023-12-21] MEDS ORDERED: NITROGLYCERIN 0.4 MG/TAB BOTTLE SL PRN (20:30)
[2023-12-21] MEDS ORDERED: MAG HYDROX/AL HYDROX/SIMETH 30 ML UDC PO PRN (20:30)
[2023-12-21 20:50] VITALS: BP 155/82; TEMP 97.9; O2SAT 97
[2023-12-21 21:20] VITALS: BP 155/82; TEMP 97.9; O2SAT 97
[2023-12-21 21:30] VITALS: BP 155/80; TEMP 97.9; O2SAT 97
[2023-12-21] MEDS: IV NS 0.9% 1,000 ML IV PRN (21:34)
[2023-12-21] MEDS: TEMAZEPAM 7.5 MG CAPSULE PO PRN (22:12)
[2023-12-22] VITALS (7 sets, daily range): BP systolic 136–179; BP diastolic 71–83; TEMP 97.5–99.7; O2SAT 94–98
[2023-12-22] MEDS: CLONIDINE HCL 0.1 MG TABLET PO PRN (05:36)
[2023-12-22 06:54] LABS: BASOPHILS % (AUTO) 0.3 % (0.0-2.0); EOSINOPHILS # (AUTO) 0.1 K/uL (0.0-0.7); EOSINOPHILS % (AUTO) 1.1 % (0.0-6.0); HEMATOCRIT 41 % (33-45); HEMOGLOBIN 13.8 g/dL (11.5-14.8); LYMPHOCYTES # (AUTO) 1.8 K/uL (0.8-4.8); LYMPHOCYTES % (AUTO) 28.6 % (20.0-44.0); MEAN CORPUSCULAR HEMOGLOBIN 29 PG (26.0-33.0); MEAN CORPUSCULAR HGB CONC 33 g/dl (31.0-36.0); MEAN CORPUSCULAR VOLUME 87 fL (82-100); MONOCYTES # (AUTO) 0.5 K/uL (0.1-1.30); MONOCYTES % (AUTO) 7.5 % (2.0-12.0); NEUTROPHILS % (AUTO) 62.5 % (43.0-81.0); PLATELET COUNT (AUTO) 154 K/uL (150-450); RED BLOOD CELL COUNT(AUTO) 4.76 MIL/uL (4.0-5.2); RED CELL DISTRIBUTION WIDTH 13.9 % (11.5-15.0); WHITE BLOOD COUNT (AUTO) 6.4 K/uL (4.3-11.0)
[2023-12-22] MEDS: PANTOPRAZOLE 40 MG TABLET.DR PO SCH (07:49)
[2023-12-22 07:52] LABS: ALBUMIN 3.4 g/dL (3.4-5.0); BILIRUBIN,DIRECT 0.1 mg/dL (0.0-0.2); BILIRUBIN,TOTAL 0.6 mg/dL (0.2-1.0); CALCIUM, SERUM 8.7 mg/dL (8.5-10.1); CREATININE 0.8 mg/dL (0.6-1.3); MAGNESIUM 2.2 mg/dL (1.8-2.4); PHOSPHORUS 3.7 mg/dL (2.5-4.9); POTASSIUM 3.9 mmol/L (3.5-5.1); TOTAL PROTEIN, SERUM 6.8 g/dL (6.4-8.2)
[2023-12-22 08:05] LABS: THYROID STIMULATING HORMONE 1.11 uIU/mL (0.358-3.74)
[2023-12-22] MEDS: CYANOCOBALAMIN 500 MCG TABLET PO SCH (08:12)
[2023-12-22] MEDS: ASPIRIN 81 MG TAB.CHEW PO SCH (08:13)
[2023-12-22] MEDS: VALSARTAN 80 MG TABLET PO SCH (08:13)
[2023-12-22] MEDS: CLOPIDOGREL BISULFATE 75 MG TABLET PO SCH (08:13)
[2023-12-22] MEDS: HYDROCHLOROTHIAZIDE 25 MG TABLET PO SCH (08:14)
[2023-12-22] MEDS: METOPROLOL SUCCINATE 50 MG TAB.SR.24H PO SCH (08:15)
[2023-12-22] MEDS: busPIRone 5 MG TABLET PO SCH ×2 (08:19→17:03)
[2023-12-22] MEDS: MIRTAZAPINE 15 MG TABLET PO SCH (22:00)
[2023-12-22 22:30] LABS: URINE SODIUM, RANDOM 70 mmol/l (40-220)
[2023-12-23] VITALS (9 sets, daily range): BP systolic 127–172; BP diastolic 68–83; TEMP 97.3–98.2; O2SAT 94–98
[2023-12-23 07:43] LABS: THYROID STIMULATING HORMONE 1.04 uIU/mL (0.358-3.74); URIC ACID 3.7 mg/dL (2.6-7.2)
[2023-12-23 08:03] LABS: CALCIUM, SERUM 8.8 mg/dL (8.5-10.1); CREATININE 0.8 mg/dL (0.6-1.3); MAGNESIUM 2.2 mg/dL (1.8-2.4); PHOSPHORUS 3.8 mg/dL (2.5-4.9); POTASSIUM 3.4 mmol/L (3.5-5.1)
[2023-12-23] MEDS: PRAZOSIN HCL 1 MG CAPSULE PO SCH (09:00)
[2023-12-23] MEDS: NIFEdipine XL (30MG) 30 MG TAB PO SCH (09:03)
[2023-12-23] MEDS: POTASSIUM CHLORIDE 20 MEQ TAB.PRT.SR PO ONE (11:24)
[2023-12-23] MEDS: SPIRONOLACTONE 25 MG TABLET PO SCH (14:04)
[2023-12-23] MEDS: hydrALAZINE HCL 50 MG TABLET PO SCH (14:05)
[2023-12-23 17:17] LABS: OSMOLALITY,URINE 316 mOS/kg (340-1090)
[2023-12-24] VITALS (10 sets, daily range): BP systolic 88–143; BP diastolic 52–80; TEMP 97.5–98.6; O2SAT 95–97
[2023-12-24 06:41] LABS: BASOPHILS % (AUTO) 0.3 % (0.0-2.0); EOSINOPHILS # (AUTO) 0.1 K/uL (0.0-0.7); EOSINOPHILS % (AUTO) 1.5 % (0.0-6.0); HEMATOCRIT 44 % (33-45); HEMOGLOBIN 15.2 g/dL (11.5-14.8); LYMPHOCYTES # (AUTO) 2.6 K/uL (0.8-4.8); LYMPHOCYTES % (AUTO) 28.5 % (20.0-44.0); MEAN CORPUSCULAR HEMOGLOBIN 30 PG (26.0-33.0); MEAN CORPUSCULAR HGB CONC 35 g/dl (31.0-36.0); MEAN CORPUSCULAR VOLUME 87 fL (82-100); MONOCYTES # (AUTO) 0.7 K/uL (0.1-1.30); MONOCYTES % (AUTO) 7.3 % (2.0-12.0); NEUTROPHILS # (AUTO) 5.7 K/uL (1.8-8.9); NEUTROPHILS % (AUTO) 62.4 % (43.0-81.0); PLATELET COUNT (AUTO) 181 K/uL (150-450); RED BLOOD CELL COUNT(AUTO) 5.05 MIL/uL (4.0-5.2); RED CELL DISTRIBUTION WIDTH 13.9 % (11.5-15.0); WHITE BLOOD COUNT (AUTO) 9.1 K/uL (4.3-11.0)
[2023-12-24 07:27] LABS: ALBUMIN 3.7 g/dL (3.4-5.0); BILIRUBIN,TOTAL 0.8 mg/dL (0.2-1.0); CALCIUM, SERUM 9.1 mg/dL (8.5-10.1); MAGNESIUM 2.2 mg/dL (1.8-2.4); PHOSPHORUS 4.3 mg/dL (2.5-4.9); POTASSIUM 3.5 mmol/L (3.5-5.1); TOTAL PROTEIN, SERUM 7.4 g/dL (6.4-8.2)
[2023-12-24] MEDS: IV NS 0.9% 500 ML IV ONE ×2 (11:26→14:18)
[2023-12-24] MEDS: hydrALAZINE HCL 50 MG TABLET PO SCH (12:57)
[2023-12-24] MEDS: ALPRAZOLAM 0.25 MG TABLET PO PRN (21:46)
[2023-12-25] VITALS (7 sets, daily range): BP systolic 126–172; BP diastolic 65–82; TEMP 97.3–99; O2SAT 94–100
[2023-12-25 06:11] LABS: BASOPHILS % (AUTO) 0.3 % (0.0-2.0); EOSINOPHILS # (AUTO) 0.1 K/uL (0.0-0.7); EOSINOPHILS % (AUTO) 1.3 % (0.0-6.0); HEMATOCRIT 39 % (33-45); HEMOGLOBIN 13.2 g/dL (11.5-14.8); LYMPHOCYTES % (AUTO) 27.4 % (20.0-44.0); MEAN CORPUSCULAR HEMOGLOBIN 30 PG (26.0-33.0); MEAN CORPUSCULAR HGB CONC 34 g/dl (31.0-36.0); MEAN CORPUSCULAR VOLUME 88 fL (82-100); MONOCYTES # (AUTO) 0.6 K/uL (0.1-1.30); MONOCYTES % (AUTO) 8.7 % (2.0-12.0); NEUTROPHILS # (AUTO) 4.5 K/uL (1.8-8.9); NEUTROPHILS % (AUTO) 62.3 % (43.0-81.0); PLATELET COUNT (AUTO) 158 K/uL (150-450); RED BLOOD CELL COUNT(AUTO) 4.47 MIL/uL (4.0-5.2); RED CELL DISTRIBUTION WIDTH 13.8 % (11.5-15.0); WHITE BLOOD COUNT (AUTO) 7.2 K/uL (4.3-11.0)
[2023-12-25 06:30] LABS: CALCIUM, SERUM 7.9 mg/dL (8.5-10.1); CREATININE 0.9 mg/dL (0.6-1.3); MAGNESIUM 2.1 mg/dL (1.8-2.4); PHOSPHORUS 3.5 mg/dL (2.5-4.9); POTASSIUM 3.9 mmol/L (3.5-5.1)
[2023-12-26 04:00] VITALS: BP 129/76; TEMP 97.5; O2SAT 98
[2023-12-26 08:00] VITALS: BP 150/75; TEMP 97.7; O2SAT 99
[2023-12-26] MEDS: SPIRONOLACTONE 25 MG TABLET PO SCH (08:43)
[2023-12-26] MEDS: ACETAMINOPHEN 325 MG TABLET PO PRN (10:50)
[2023-12-26 12:00] VITALS: BP 131/69; TEMP 97.8; O2SAT 99
[2023-12-26] MEDS ORDERED: CLON0.1T PO (13:00)
[2023-12-26] MEDS ORDERED: ALPR0.255 PO (13:00)
[2023-12-26] MEDS ORDERED: MIRT-121 PO (13:00)
[2023-12-26] MEDS ORDERED: HYDR-4077 PO (13:00)
[2023-12-26] MEDS ORDERED: VALS80TA31 PO (13:00)
[2023-12-26] MEDS ORDERED: METO50TA7 PO (13:00)
[2023-12-26] MEDS ORDERED: ASPI-1169 PO (13:00)
[2023-12-26] MEDS ORDERED: NIFE30TA2 PO (13:00)
[2023-12-26] MEDS ORDERED: SPIR25TA6 PO (13:00)
[2023-12-26 13:18] VITALS: BP 131/69
== END 2023-12-26 15:13 | disposition home or self-care (01) | DRG 281 ==
LOC: ER 15:03 → TELE 21:02 → MED 12-26 14:56
PROVIDERS: ADMIT Nurse Practitioner Family; ATTEND Nurse Practitioner Acute Care
DX: I16.0 Hypertensive urgency (principal); E87.1 Hypo-osmolality and hyponatremia; I21.A1 Myocardial infarction type 2; I1A.0 Resistant hypertension; E78.5 Hyperlipidemia, unspecified; F41.1 Generalized anxiety disorder; E66.01 Morbid (severe) obesity due to excess calories; I95.2 Hypotension due to drugs; T50.2X5A Adverse effect of carbonic-anhydrase inhibitors, benzothiadiazides and other diuretics, initial encounter; Y92.230 Patient room in hospital as the place of occurrence of the external cause; R60.0 Localized edema; T46.1X5A Adverse effect of calcium-channel blockers, initial encounter; Y92.019 Unspecified place in single-family (private) house as the place of occurrence of the external cause; E87.6 Hypokalemia; E86.9 Volume depletion, unspecified; I25.10 Atherosclerotic heart disease of native coronary artery without angina pectoris; Z68.34 Body mass index [BMI] 34.0-34.9, adult; Z79.82 Long term (current) use of aspirin; M25.472 Effusion, left ankle; M25.471 Effusion, right ankle
CPT/HCPCS: 36415; 70450-TC; 71045-TC; 80048-TC; 80053-TC; 80076-TC; 83735-TC; 83880; 83935-TC; 84100-TC; 84300-TC; 84443-TC; 84484-TC; 84550-TC; 85025-TC; A4223; G0378; J1200; J2765; J7030; J7040